=== PATIENT | male | born 1935 | race Caucasian/White ===

== ENCOUNTER → 2020-08-03 10:50 | Outpatient (BNVA) | payer MEDICARE, OTHER, SELFPAY | PROVIDERS: PCP Internal Medicine; Referring Provider Internal Medicine; Visit Provider Urology | DX: N32.0 Bladder-neck obstruction (principal) | CPT/HCPCS: Q3014 ==

== ENCOUNTER 2021-02-24 15:18 | Outpatient (REF) | payer MEDICARE, OTHER, SELFPAY ==
--- NOTE | ~2021-02-24 | US_ITS ---
EXAMINATION: US PELVIS, LIMITED/FOLLOW UP CLINICAL INFORMATION: Right groin lump COMPARISON: CT of the abdomen and pelvis May 2013 TECHNIQUE: Doppler, color and grayscale evaluation of the right inguinal region using a linear transducer FINDINGS: There is a small right inguinal hernia. This measures approximately 2 x 3 cm. There is movement within the hernia sac suggestive of peristalsis or contained loop of bowel. US/US pelvic limited IMPRESSION: Right inguinal hernia.
== END 2021-02-24 15:19 | disposition home or self-care (01) ==
LOC: HO.HMGCX 15:18
PROVIDERS: PCP Internal Medicine; Visit Provider Internal Medicine
DX: R19.09 Other intra-abdominal and pelvic swelling, mass and lump (principal)
CPT/HCPCS: 76857

== ENCOUNTER → 2021-03-25 10:42 | Outpatient (BNVA) | payer MEDICARE, OTHER, SELFPAY | PROVIDERS: PCP Internal Medicine; Referring Provider Internal Medicine; Visit Provider Surgery | DX: K40.90 Unilateral inguinal hernia, without obstruction or gangrene, not specified as recurrent (principal) | CPT/HCPCS: 99202 ==

== ENCOUNTER 2021-04-29 14:29 | Outpatient (REF) | payer MEDICARE, OTHER, SELFPAY | END 2021-04-29 14:30 | disposition home or self-care (01) | LOC: HO.LNP 14:29 | PROVIDERS: Visit Provider Hospitalist | DX: R30.0 Dysuria (principal) | CPT/HCPCS: 87086 ==